=== PATIENT | male | born 1980 | race Caucasian/White ===

== ENCOUNTER 2020-08-11 16:33 | Emergency (ER) | payer SELFPAY ==
[2020-08-11 16:34] VITALS: BP 106/86; PULSE 91; RESP 15; TEMP 36.1; O2SAT 96; BMI 21.6
[2020-08-11] MEDS: Cephalexin 500 MG Capsule PO (19:24)
[2020-08-11 20:34] VITALS: RESP 18
--- NOTE | 2020-08-11 21:26 | ED.VISSUMM ---
- ER Visit Summary Date of Service: 08/11/20 Chief Complaint: Abscess History of Present Illness: The patient is a 40 M who presents with an abscess in his pubic area that has been getting worse over the past 4 days. Patient states he was able to express a mild amount of purulent drainage. Patient describes the pain as aching and throbbing. Patient states nothing makes it worse nothing makes it better. Patient denies any fevers or chills. Patient denies any nausea or vomiting. Physical Examination: Vital signs are stable. Patient is afebrile. Patient is in no acute distress. Skin is warm and dry. There is erythema and induration in the pubic area. There is minimal fluctuance. There is an open area that has been draining. There is no warmth or streaking noted. Abdomen is soft. Bowel sounds are normal. There is no tenderness. Cranial nerves II through XII are intact. There are no focal motor or sensory deficits noted. Emergency Department Course and Treatment: The area was cleaned with chlorhexidine prep. The area was anesthetized with 1% plain lidocaine locally. A small cruciate incision was made using an 11 blade scalpel. A small amount of purulent drainage was expressed. The wound was left open. Bacitracin dressing was applied. Patient tolerated the procedure well. Patient was instructed to use warm compresses. Patient was given a dose of Keflex here. Patient was given a prescription for Keflex. Patient was instructed to follow-up with her primary care physician in 5 to 7 days. Patient understood and was agreeable with the plan. All questions were answered. Disposition: Discharge home Impression: Abscess This note was generated with [employer] dictation software. It may contain incorrect words, spelling, and punctuation that were not noted in review of the chart prior to signing ED Disposition - Plan for ED Patient: Disposition: Home or Assisted Living Diagnosis: Abscess Instructions: ED Abscess Incision And Drainage Prescriptions: Cephalexin [Keflex] 500 mg PO Q6 #40 cap Prescription Printed Referrals: Rian Cameron MD [Primary Care Provider] - 5-7 Days
== END 2020-08-11 21:41 | disposition home or self-care (01) ==
PROVIDERS: Emergency Provider Emergency Medicine; PCP Internal Medicine
DX: L02.214 Cutaneous abscess of groin (principal); F17.200 Nicotine dependence, unspecified, uncomplicated
CPT/HCPCS: 10060; 90471; 99282

== ENCOUNTER 2020-10-26 19:00 | Inpatient (IN) | payer MEDICAID, SELFPAY ==
[2020-10-26 19:01] VITALS: BP 124/86; PULSE 104; RESP 20; TEMP 35.9; O2SAT 100; BMI 20.5
--- NOTE | 2020-10-26 19:09 | ED.DCSUM_ITS ---
History of Present Illness Chief Complaint: Substance Abuse Narrative: Patient is here for detox. He has no physical complaints he uses a half a gram of fentanyl every day. He has no current withdrawal symptoms. He denies chest pain shortness of breath fevers or chills. He has occasional methamphetamines, denies any alcohol use. Past Medical History - Allergies and Home Meds Allergies/Adverse Reactions: Allergies No Known Allergies Allergy (Verified 10/26/20 19:02) Primary Care Physician: Rian Cameron MD [Primary Care Provider] - Past Medical History: None Smoking Status: Current every day smoker Review of Systems All systems negative except as indicated General: Denies: Fever Eyes: Denies: Visual changes - bilaterally ENT: Denies: Rhinorrhea, Sore throat Cardiovascular: Denies: Chest pain Respiratory: Denies: Dyspnea, Cough Gastrointestinal: Denies: Abdominal pain, Nausea, Vomiting Genitourinary: Denies: Dysuria Musculoskeletal: Denies: Myalgias Skin: Denies: Rash Neurological: Denies: Headache, Weakness Psych: Reports: - - -10 mils Hematologic: Denies: Easy bruising, Easy bleeding Physical Exam Vital Signs/Narrative: Vital Signs Temp Pulse Resp BP Pulse Ox 10/26/20 19:01 96.7 F L 104 H 20 H 124/86 H 100 General: Well nourished Head: Normocephalic Eyes: EOMI ENT: Moist mucous membranes, No rhinorrhea Cardiovascular: Regular rate, Regular rhythm, No murmurs Respiratory: No distress, CTA bilaterally Abdomen: Soft, Nontender, Nondistended Back: Nontender, Normal Inspection. Negative for: CVA tenderness Extremities: Nontender, No edema Skin: Normal color Neurological: Normal Strength, Normal Sensation Psychological: Normal affect Diagnostic/Tx/Re-eval - Medical Decision Making Patient will be medically cleared and I will admit him to the detox center. ED Disposition - Plan for ED Patient: Disposition: Acute Care Hospital [facility] Instructions: ED Opioid Withdrawal Referrals: Rian Cameron MD [Primary Care Provider] -
[2020-10-26 19:49] LABS: Hematocrit 41.9 % (40-54); Mean Corpuscular Hgb 25.7 pg (27.0-32.0); Mean Corpuscular Volume 82.8 fL (80-94); Mean Platelet Vol. 9.6 fl (6.2-12.0); Platelet Count 260 K/mm3 (150-450); RBC Distribution Width CV 13.4 % (11.6-14.6); Red Blood Count 5.06 M/mm3 (4.6-6.2)
[2020-10-26 20:12] LABS: Amphetamine Urine VISTA POSITIVE (<1000 ng/mL); Barbiturate Urine VISTA NEGATIVE (< 200 ng/mL); Benzodiazepine Urine VISTA NEGATIVE (< 200 ng/mL); Cocaine Urine VISTA NEGATIVE (< 300 ng/mL); Ecstacy Urine VISTA POSITIVE (< 500 ng/mL); Methadone Urine VISTA NEGATIVE (< 300 ng/mL); PCP Urine VISTA NEGATIVE (< 25 ng/mL); THC Urine VISTA NEGATIVE (< 50 ng/mL); Vista UDS pH Range 6
[2020-10-26 20:19] LABS: AST(SGOT) 22 U/L (15-37); Alanine Aminotransfer ALT/SGPT 24 U/L (16-61); Albumin, Serum 3.8 g/dL (3.2-5.0); Alkaline Phosphatase 110 U/L (45-117); Anion Gap 4 (5-15); BUN 16 mg/dL (7-18); BUN/Creat Ratio 17.3 RATIO (10-20); Chloride 103 mmol/L (98-107); Creatinine, Serum 0.92 mg/dL (0.70-1.30); EST Glomerular Filtration Rate 96 mL/min (>60); Est Glom Filt Rate - Afr Amer 116 mL/min (>60); Estimated Creatinine Clearance 100.85 ml/min; Glucose 74 mg/dL (74-106); Potassium 3.5 mmol/L (3.5-5.1); Protein, Total 7.8 g/dL (6.4-8.2); Sodium Level 138 mmol/L (136-145)
--- NOTE | 2020-10-26 20:19 | CM.ED ---
Social Work Consult: Substance Abuse. Informant: Self Referral Met with patient in room. Introduced self and social welfare research worker role. Patient agreeable to speak with this social welfare research worker. Patient reports to be seeking help for opioid abuse. Patient reports to have last used yesterday. Patient verbally agreeing to [facility] contract for medical management of withdrawal symptoms. Patient denies any mental health history or suicidal thoughts, plans, intents. Patient reports to have abuse opioids for the past two years and I just need to make a change. Patient report plan from [facility] is to follow-up with [facility]. All questions answered. Telephone call to Bishnu Miranda. Updated on patient admission to [facility]. Chay Scott MSW, DANNY-S
--- NOTE | 2020-10-26 20:53 | PCM.HP.STD ---
Problem List (1) Chronic, continuous use of opioids Status: Chronic (2) Nicotine dependence Status: Acute Qualifiers: Nicotine product type: cigarettes Substance use status: uncomplicated Qualified Code(s): F17.210 - Nicotine dependence, cigarettes, uncomplicated History of Present Illness Date of Admission: 10/26/20 Chief Complaint: Request for medical stabilization The patient is a 40 year old M with past medical history of polysubstance use disorder, who uses fentanyl about half a gram daily for the past 2 years. Patient last use fentanyl 12 hours ago. He comes in requesting for medical stabilization. He admits to restless legs. Denied any fever or chills or nausea or vomiting. He plans on going [facility] after discharge for drug rehab. Vitals in the ED showed temperature of 96.7F, heart rate 104, blood pressure 124/86, respiratory rate is 20, SPO2 is 100% on room air. CBC D and CMP is unremarkable. Urine tox is positive for methamphetamine. Alcohol level is 5.0 Past Medical History Past Medical History (Chronic Problems): Chronic Problems Chronic, continuous use of opioids (Chronic) Allergies No Known Allergies Allergy (Verified 10/26/20 19:02) Home Medications: Ambulatory Orders Medication Instructions Recorded NK 10/26/20 Surgical History: - - Left knee surgery Psychiatric History: No pertinent psych hx Lives: Alone Smoking Status: Current some day smoker Tobacco Use: Cigarettes Alcohol: None Drugs: None - *Family History Maternal History Items: No pertinent history Paternal History Items: No pertinent history Review of Systems Constitutional: Denies: Anorexia, Chills, Fever, Malaise, Weakness, Weight Change, Fatigue Eyes: Denies: Blurred vision, Cataracts, Conjunctivae Inflammation, Pain, Redness, Vision Change HEENT: Denies: Difficulty Hearing, Difficulty Swallowing, Head Aches, Hearing Changes, Nasal Congestion, Sinus Congestion, Sinus Drainage Cardiovascular: Denies: Chest Pain, Claudication, Chest Tightness, Light Headedness, Orthopnea, Palpitations, Paroxysmal Noc. Dyspnea Respiratory: Denies: Cough, Pleuritic Pain, Shortness of breath at rest, Shortness of breath upon exertion, Sputum production, Wheezing Gastrointestinal: Denies: Abdominal Pain, Constipation, Hematemesis, Hematochezia, Nausea, Vomiting Genitourinary: Denies: Dysuria, Frequency, Incontinence, Nocturia Musculoskeletal: Denies: Joint Pain, Joint stiffness, Joint swelling, Joint Tenderness Skin: Denies: Dryness, Pruritis, Rash, Wounds Neurological: Reports: - - Restless leg. Denies: Difficulty swallowing, Focal weakness, Numbness, Tingling Psychiatric: Denies: Anxiety, Depression, Homicidal Ideations, Suicidal Ideations Hematologic/ Lymphatic: Denies: Easy Bruising, Easy Bleeding VTE Information - Inpt Only VTE Present on Admission: No VTE Pharm Prophylaxis ordered?: Yes - Physical Exam Vitals/I&O's: Vital Signs Temp Pulse Resp BP Pulse Ox 96.7 F L 104 H 20 H 124/86 H 100 10/26/20 19:01 10/26/20 19:01 10/26/20 19:10/26/20 19:10/26/20 19:01 Oxygen Delivery Method Room Air Weight: 66.8 kg Body Mass Index (BMI) 20.5 General: Alert, Oriented x3, Cooperative, No apparent distress HEENT: Atraumatic, PERRLA, EOMI, Normocephalic Oral: Moist Mucosa Neck: Supple Lungs: Clear to auscultation, Normal air movement Cardiovascular: Regular rate, Regular Rhythm, Normal S1, Normal S2, No murmurs Abdomen: Bowel Sounds Present, Soft, Non Tender, Non-Distended, No Hepato-splenomegaly Extremities: No edema Skin: No rashes Musculoskeletal: No Tenderness to Palpation of Joints or Extremities Lymphatic: No Cervical, Supraclavicular, or Inguinal Adenopathy Neurological: Cranial nerves II-XII grossly intact, Neuro grossly intact Psych/Mental Status: Normal Affect, Appropriate Laboratory Results 10/26/20 19:22: Urine Opiates Screen NEGATIVE, Urine Methadone Screen NEGATIVE, Ur Barbiturates Screen NEGATIVE, Ur Phencyclidine Scrn NEGATIVE, Ur Amphetamines Screen POSITIVE H, U Methamphetamin-MDMA POSITIVE H, U Benzodiazepines Scrn NEGATIVE, Urine Cocaine Screen NEGATIVE, U Cannabinoids Screen NEGATIVE, Ur Drug Screen Comment 10/26/20 19:40: WBC 6.0, RBC 5.06, Hgb 13.0, Hct 41.9, MCV 82.8, MCH 25.7 L, MCHC 31.0 L, RDW Std Deviation 40.0, RDW Coeff of Erica 13.4, Plt Count 260, MPV 9.6 10/26/20 19:40: Sodium 138, Potassium 3.5, Chloride 103, Carbon Dioxide 31.0, Anion Gap 4 L, BUN 16, Creatinine 0.92, Estim Creat Clear Calc 100.85, Est GFR (MDRD) Af Amer 116, Est GFR (MDRD) Non-Af 96, BUN/Creatinine Ratio 17.3, Glucose 74, Calcium 9.0, Total Bilirubin 0.40, AST 22, ALT 24, Alkaline Phosphatase 110, Total Protein 7.8, Albumin 3.8, Globulin 4.0, Albumin/Globulin Ratio 1.0 10/26/20 19:40: Ethyl Alcohol 5.0 Assessment/Plan All Active Problems Nicotine dependence (Acute) 1. Chronic opioid use disorder, patient uses fentanyl, request for medical nebulization for acute opioid withdrawal Patient has started to have restless legs; anticipate more withdrawal We will continue to monitor on the buprenorphine withdrawal protocol 2. Nicotine dependence, advised to quit, will continue on replacement 3. DVT prophylaxis -low risk, early ambulation recommended Inpatient E&M: 09663 Init Hosp L2
[2020-10-26 21:29] VITALS: BP 117/95; PULSE 95; RESP 16; TEMP 36.6; O2SAT 99
[2020-10-26 23:15] VITALS: BMI 19.5
[2020-10-26 23:24] VITALS: BMI 19.5
[2020-10-26 23:30] VITALS: BP 109/72; PULSE 84; RESP 18; TEMP 36.4; O2SAT 100
[2020-10-27 03:09] VITALS: BP 117/93; PULSE 92; RESP 18; TEMP 37; O2SAT 99
[2020-10-27] MEDS: cloNIDine HCl 0.1 MG Tablet PO (03:19)
[2020-10-27] MEDS: Ibuprofen 600 MG Tablet PO (03:19)
[2020-10-27] MEDS: Buprenorphine HCl 2 MG TAB.SUBL SL ×3 (03:19→18:49)
[2020-10-27 05:55] VITALS: BP 105/68; PULSE 80; RESP 18; TEMP 36.8; O2SAT 96
--- NOTE | 2020-10-27 09:33 | ADDICTION ---
This functional tester typewriters met with patient in his room to conduct ASAM, MSE, DUDIT assessments and to plan for discharge. PT presented with agitated mood and stated that he wants to leave to use but also noted that he plans to engage with [facility] immediately upon d/c from [facility]. He also reported that he and his girlfriend may move to [place] post [facility] d/c. This functional tester typewriters encouraged client to engage in recovery programming, such as [facility] prior to moving to [place] as he will likely need to gain coping skills and relapse prevention skills prior to making significant life changes. All assessments completed, faxed to and placed in chart on floor.
[2020-10-27 11:15] VITALS: BP 105/94; PULSE 82; RESP 16; TEMP 36.9; O2SAT 96
[2020-10-27] MEDS: hydrOXYzine PAM 25 MG Capsule 50 MG PO (11:15)
[2020-10-27] MEDS: Methocarbamol 750 MG Tablet 1500 MG PO ×2 (11:15→22:20)
[2020-10-27 14:50] VITALS: BP 122/83; PULSE 85; RESP 16; TEMP 36.4; O2SAT 99
--- NOTE | 2020-10-27 16:29 | PN_ITS ---
Patient Problems: Active and Suspected Problems Nicotine dependence (Acute) Subjective: Patient was seen and examined today, he does not complain of any nervousness, tremor, or uneasiness. - Physical Exam Vitals/I&O's: Vital Signs Temp Pulse Resp BP Pulse Ox 97.5 F L 85 16 122/83 H 99 10/27/20 14:50 10/27/20 14:50 10/27/20 14:50 10/27/20 14:50 10/27/20 14:50 Oxygen Delivery Method Room Air Weight: 63.2 kg Body Mass Index (BMI) 19.5 Intake and Output for Last 24 Hours 10/25/20 10/26/20 10/27/20 23:59 23:59 23:59 Intake Total 800 / 800 Balance 800 / 800 General: Alert, Oriented x3, Cooperative, No apparent distress, Well developed, Well nourished HEENT: Atraumatic, PERRLA, EOMI, Normocephalic Oral: Moist Mucosa Neck: Supple, No JVD, Negative Carotid Bruits, Trachea Midline, Thyroid Normal Size and Texture Lungs: Clear to auscultation, Normal air movement, No rhonchi, No wheeze, No rales Cardiovascular: Regular rate, Regular Rhythm, Normal S1, Normal S2, No murmurs, PMI Normal, No rub noted, No Gallop Abdomen: Bowel Sounds Present, Soft, Non Tender, Non-Distended Extremities: No clubbing, No cyanosis, No edema, Capillary Refill Less than 3 Seconds Skin: No rashes, No breakdown Musculoskeletal: No Tenderness to Palpation of Joints or Extremities Neurological: Cranial nerves II-XII grossly intact, Neuro grossly intact, Sensory exam intact to light touch and pain, Coordination normal Psych/Mental Status: Normal Affect, Appropriate, Alert and oriented to time, place, person, mood and affect Laboratory Results 10/26/20 19:22: Urine Opiates Screen NEGATIVE, Urine Methadone Screen NEGATIVE, Ur Barbiturates Screen NEGATIVE, Ur Phencyclidine Scrn NEGATIVE, Ur Amphetamines Screen POSITIVE H, U Methamphetamin-MDMA POSITIVE H, U Benzodiazepines Scrn NEGATIVE, Urine Cocaine Screen NEGATIVE, U Cannabinoids Screen NEGATIVE, Ur Drug Screen Comment 10/26/20 19:40: WBC 6.0, RBC 5.06, Hgb 13.0, Hct 41.9, MCV 82.8, MCH 25.7 L, MCHC 31.0 L, RDW Std Deviation 40.0, RDW Coeff of Erica 13.4, Plt Count 260, MPV 9.6 10/26/20 19:40: Sodium 138, Potassium 3.5, Chloride 103, Carbon Dioxide 31.0, Anion Gap 4 L, BUN 16, Creatinine 0.92, Estim Creat Clear Calc 100.85, Est GFR (MDRD) Af Amer 116, Est GFR (MDRD) Non-Af 96, BUN/Creatinine Ratio 17.3, Glucose 74, Calcium 9.0, Total Bilirubin 0.40, AST 22, ALT 24, Alkaline Phosphatase 110, Total Protein 7.8, Albumin 3.8, Globulin 4.0, Albumin/Globulin Ratio 1.0 10/26/20 19:40: Ethyl Alcohol 5.0 Current Medications Acetaminophen (Acetaminophen 500 Mg Tablet) 500 mg PO Q4H PRN PRN PRN Reason: Temp > 100.4 F Al Hydroxide/Mg Hydroxide (Mag Hydrox/Al Hydrox/Simeth 30 Ml Udc) 30 ml PO Q6H PRN PRN PRN Reason: dyspesia Buprenorphine HCl (Buprenorphine Hcl 2 Mg Tab.Subl) 4 mg SL Q8H FREDI; Taper Stop: 10/30/20 03:29 Last Admin: 10/27/20 11:15 Dose: 4 mg Documented by: Clonidine (Clonidine Hcl 0.1 Mg Tablet) 0.1 mg PO Q8H PRN PRN PRN Reason: RESTLESSNESS Last Admin: 10/27/20 03:19 Dose: 0.1 mg Documented by: Dicyclomine HCl (Dicyclomine 10 Mg Capsule) 20 mg PO Q6H PRN PRN PRN Reason: Abdominal Discomfort Gabapentin (Gabapentin 300 Mg Capsule) 300 mg PO Q8H PRN PRN PRN Reason: moderate to severe anxiety Hydroxyzine Pamoate (Hydroxyzine Imani 25 Mg Capsule) 50 mg PO Q6H PRN PRN PRN Reason: mild anxiety Last Admin: 10/27/20 11:15 Dose: 50 mg Documented by: Ibuprofen (Ibuprofen 600 Mg Tablet) 600 mg PO Q8H PRN PRN PRN Reason: Pain Score 1-10 Last Admin: 10/27/20 03:19 Dose: 600 mg Documented by: Loperamide HCl (Loperamide 2 Mg Capsule) 2 mg PO Q4H PRN PRN PRN Reason: LOOSE STOOLS Methocarbamol (Methocarbamol 750 Mg Tablet) 1,500 mg PO Q6H PRN PRN PRN Reason: MUSCLE SPASM Last Admin: 10/27/20 11:15 Dose: 1,500 mg Documented by: Nicotine (Nicotine 21 Mg Patch) 21 mg TD DAILY FREDI Last Admin: 10/27/20 11:10 Dose: Not Given Documented by: Nicotine Polacrilex (Nicotine Polacrilex 4 Mg Gum) 4 mg PO Q2H PRN PRN PRN Reason: Nicotine Craving Ondansetron HCl (Ondansetron 8 Mg Tablet) 8 mg PO Q8H PRN PRN PRN Reason: NAUSEA Senna (Senna Tablet) 2 tablet PO QHS PRN PRN Reason: Constipation Trazodone HCl (Trazodone 100 Mg Tablet) 100 mg PO QHS PRN PRN PRN Reason: INSOMNIA Medical Necessity - Tobacco Use Smoking Status: Current some day smoker Tobacco Use: Cigarettes Assessment/Plan All Active Problems Nicotine dependence (Acute) #1 opiate withdrawal-patient will remain on his current medications, 180 talked with the patient today, during the conversation he appeared to have an agitated mood but he expressed desire to follow-up with inpatient rehab services after h is discharge from the hospital. #2 polysubstance abuse Inpatient E&M: [id number] [facility] Hosp L2
[2020-10-27 18:57] VITALS: BP 116/65; PULSE 90; RESP 16; TEMP 36.4; O2SAT 99
[2020-10-27 22:13] VITALS: BP 126/69; PULSE 86; RESP 18; TEMP 36.5; O2SAT 99
[2020-10-27] MEDS: Acetaminophen 500 MG Tablet PO (22:20)
--- NOTE | 2020-10-27 23:57 | PCS.PANDOC ---
PANDEMIC DOCUMENTATION INITIATED: Date: 2329 Time: 10/26/20
[2020-10-28 03:47] VITALS: BP 120/60; PULSE 89; RESP 18; TEMP 36.7; O2SAT 98
[2020-10-28] MEDS: Ibuprofen 600 MG Tablet PO (03:53)
[2020-10-28] MEDS: Buprenorphine HCl 2 MG TAB.SUBL SL ×3 (03:53→19:19)
[2020-10-28] MEDS: hydrOXYzine PAM 25 MG Capsule 50 MG PO (03:53)
[2020-10-28 09:50] VITALS: BP 116/76; PULSE 79; RESP 18; TEMP 36.2; O2SAT 98
[2020-10-28 16:00] VITALS: BP 118/81; PULSE 74; RESP 18; TEMP 36.6; O2SAT 98
--- NOTE | 2020-10-28 17:14 | PCM.PROGNOTE ---
Patient Problems: Active and Suspected Problems Nicotine dependence (Acute) Subjective: He was seen and examined today, he does not complain of any nervousness or anxiety, he does not complain of any tremor. Objective: General: Alert, Oriented x3, Cooperative, No apparent distress, Well developed, Well nourished HEENT: Atraumatic, PERRLA, EOMI, Normocephalic Oral: Moist Mucosa Neck: Supple, No JVD, Negative Carotid Bruits, Trachea Midline, Thyroid Normal Size and Texture Lungs: Clear to auscultation, Normal air movement, No rhonchi, No wheeze, No rales Cardiovascular: Regular rate, Regular Rhythm, Normal S1, Normal S2, No murmurs, PMI Normal, No rub noted, No Gallop Abdomen: Bowel Sounds Present, Soft, Non Tender, Non-Distended Extremities: No clubbing, No cyanosis, No edema, Capillary Refill Less than 3 Seconds Skin: No rashes, No breakdown Musculoskeletal: No Tenderness to Palpation of Joints or Extremities Neurological: Cranial nerves II-XII grossly intact, Neuro grossly intact, Sensory exam intact to light touch and pain, Coordination normal Psych/Mental Status: Normal Affect, Appropriate, Alert and oriented to time, place, person, mood and affect - Physical Exam Vitals/I&O's: Vital Signs Temp Pulse Resp BP Pulse Ox 97.2 F L 79 18 116/76 98 10/28/20 09:50 10/28/20 09:50 10/28/20 09:50 10/28/20 09:50 10/28/20 09:50 Oxygen Delivery Method Room Air Weight: 63.2 kg Body Mass Index (BMI) 19.5 Intake and Output for Last 24 Hours 10/26/20 10/27/20 10/28/20 23:59 23:59 23:59 Intake Total 1650 / 1650 1500 / 1500 Balance 1650 / 1650 1500 / 1500 Current Medications Acetaminophen (Acetaminophen 500 Mg Tablet) 500 mg PO Q4H PRN PRN PRN Reason: Temp > 100.4 F Last Admin: 10/27/20 22:20 Dose: 500 mg Documented by: Al Hydroxide/Mg Hydroxide (Mag Hydrox/Al Hydrox/Simeth 30 Ml Udc) 30 ml PO Q6H PRN PRN PRN Reason: dyspesia Buprenorphine HCl (Buprenorphine Hcl 2 Mg Tab.Subl) 2 mg SL Q8H FREDI; Taper Stop: 10/30/20 03:29 Last Admin: 10/28/20 11:10 Dose: 2 mg Documented by: Clonidine (Clonidine Hcl 0.1 Mg Tablet) 0.1 mg PO Q8H PRN PRN PRN Reason: RESTLESSNESS Last Admin: 10/27/20 03:19 Dose: 0.1 mg Documented by: Dicyclomine HCl (Dicyclomine 10 Mg Capsule) 20 mg PO Q6H PRN PRN PRN Reason: Abdominal Discomfort Gabapentin (Gabapentin 300 Mg Capsule) 300 mg PO Q8H PRN PRN PRN Reason: moderate to severe anxiety Hydroxyzine Pamoate (Hydroxyzine Imani 25 Mg Capsule) 50 mg PO Q6H PRN PRN PRN Reason: mild anxiety Last Admin: 10/28/20 03:53 Dose: 50 mg Documented by: Ibuprofen (Ibuprofen 600 Mg Tablet) 600 mg PO Q8H PRN PRN PRN Reason: Pain Score 1-10 Last Admin: 10/28/20 03:53 Dose: 600 mg Documented by: Loperamide HCl (Loperamide 2 Mg Capsule) 2 mg PO Q4H PRN PRN PRN Reason: LOOSE STOOLS Methocarbamol (Methocarbamol 750 Mg Tablet) 1,500 mg PO Q6H PRN PRN PRN Reason: MUSCLE SPASM Last Admin: 10/27/20 22:20 Dose: 1,500 mg Documented by: Nicotine (Nicotine 21 Mg Patch) 21 mg TD DAILY FREDI Last Admin: 10/28/20 11:10 Dose: Not Given Documented by: Nicotine Polacrilex (Nicotine Polacrilex 4 Mg Gum) 4 mg PO Q2H PRN PRN PRN Reason: Nicotine Craving Ondansetron HCl (Ondansetron 8 Mg Tablet) 8 mg PO Q8H PRN PRN PRN Reason: NAUSEA Senna (Senna Tablet) 2 tablet PO QHS PRN PRN Reason: Constipation Trazodone HCl (Trazodone 100 Mg Tablet) 100 mg PO QHS PRN PRN PRN Reason: INSOMNIA Medical Necessity - Tobacco Use Smoking Status: Current some day smoker Tobacco Use: Cigarettes Assessment/Plan All Active Problems Nicotine dependence (Acute) #1 opiate withdrawal-patient will remain on his current medications, patient states he is planning on following up with 180 for some residential treatment following discharge from the hospital. #2 polysubstance abuse Inpatient E&M: [id number] Subs Hosp L2
[2020-10-28 20:19] VITALS: BP 116/82; PULSE 78; RESP 16; TEMP 36.8; O2SAT 99
[2020-10-29 02:58] VITALS: BP 122/85; PULSE 82; RESP 16; TEMP 36.8; O2SAT 100
[2020-10-29] MEDS: Buprenorphine HCl 2 MG TAB.SUBL SL ×2 (03:01→15:30)
[2020-10-29] MEDS: Methocarbamol 750 MG Tablet 1500 MG PO (03:01)
[2020-10-29 08:30] VITALS: BP 133/85; PULSE 78; RESP 14; TEMP 36.7; O2SAT 96
[2020-10-29] MEDS: Ibuprofen 600 MG Tablet PO (11:23)
[2020-10-29] MEDS: hydrOXYzine PAM 25 MG Capsule 50 MG PO (11:23)
[2020-10-29 15:29] VITALS: BP 95/60; PULSE 83; RESP 16; TEMP 36.9; O2SAT 98
--- NOTE | 2020-10-29 16:10 | PN_ITS ---
Patient Problems: Active and Suspected Problems Nicotine dependence (Acute) Subjective: Patient was seen and examined today, he does not appear anxious or tremorous, he voices no complaints to this examiner. Objective: General: Alert, Oriented x3, Cooperative, No apparent distress, Well developed, Well nourished HEENT: Atraumatic, PERRLA, EOMI, Normocephalic Oral: Moist Mucosa Neck: Supple, No JVD, Negative Carotid Bruits, Trachea Midline, Thyroid Normal Size and Texture Lungs: Clear to auscultation, Normal air movement, No rhonchi, No wheeze, No rales Cardiovascular: Regular rate, Regular Rhythm, Normal S1, Normal S2, No murmurs, PMI Normal, No rub noted, No Gallop Abdomen: Bowel Sounds Present, Soft, Non Tender, Non-Distended Extremities: No clubbing, No cyanosis, No edema, Capillary Refill Less than 3 Seconds Skin: No rashes, No breakdown Musculoskeletal: No Tenderness to Palpation of Joints or Extremities Neurological: Cranial nerves II-XII grossly intact, Neuro grossly intact, Sensory exam intact to light touch and pain, Coordination normal Psych/Mental Status: Normal Affect, Appropriate, Alert and oriented to time, place, person, mood and affect - Physical Exam Vitals/I&O's: Vital Signs Temp Pulse Resp BP Pulse Ox 98.4 F 83 16 95/60 98 10/29/20 15:29 10/29/20 15:29 10/29/20 15:29 10/29/20 15:29 10/29/20 15:29 Oxygen Delivery Method Room Air Weight: 63.2 kg Body Mass Index (BMI) 19.5 Intake and Output for Last 24 Hours 10/27/20 10/28/20 10/29/20 23:59 23:59 23:59 Intake Total 1650 / 1650 2350 / 2350 400 / 400 Balance 1650 / 1650 2350 / 2350 400 / 400 Current Medications Acetaminophen (Acetaminophen 500 Mg Tablet) 500 mg PO Q4H PRN PRN PRN Reason: Temp > 100.4 F Last Admin: 10/27/20 22:20 Dose: 500 mg Documented by: Al Hydroxide/Mg Hydroxide (Mag Hydrox/Al Hydrox/Simeth 30 Ml Udc) 30 ml PO Q6H PRN PRN PRN Reason: dyspesia Buprenorphine HCl (Buprenorphine Hcl 2 Mg Tab.Subl) 2 mg SL Q12H FREDI; Taper Stop: 10/30/20 03:29 Last Admin: 10/29/20 15:30 Dose: 2 mg Documented by: Clonidine (Clonidine Hcl 0.1 Mg Tablet) 0.1 mg PO Q8H PRN PRN PRN Reason: RESTLESSNESS Last Admin: 10/27/20 03:19 Dose: 0.1 mg Documented by: Dicyclomine HCl (Dicyclomine 10 Mg Capsule) 20 mg PO Q6H PRN PRN PRN Reason: Abdominal Discomfort Gabapentin (Gabapentin 300 Mg Capsule) 300 mg PO Q8H PRN PRN PRN Reason: moderate to severe anxiety Hydroxyzine Pamoate (Hydroxyzine Imani 25 Mg Capsule) 50 mg PO Q6H PRN PRN PRN Reason: mild anxiety Last Admin: 10/29/20 11:23 Dose: 50 mg Documented by: Ibuprofen (Ibuprofen 600 Mg Tablet) 600 mg PO Q8H PRN PRN PRN Reason: Pain Score 1-10 Last Admin: 10/29/20 11:23 Dose: 600 mg Documented by: Loperamide HCl (Loperamide 2 Mg Capsule) 2 mg PO Q4H PRN PRN PRN Reason: LOOSE STOOLS Methocarbamol (Methocarbamol 750 Mg Tablet) 1,500 mg PO Q6H PRN PRN PRN Reason: MUSCLE SPASM Last Admin: 10/29/20 03:01 Dose: 1,500 mg Documented by: Nicotine (Nicotine 21 Mg Patch) 21 mg TD DAILY [facility] Last Admin: 10/29/20 08:23 Dose: Not Given Documented by: Nicotine Polacrilex (Nicotine Polacrilex 4 Mg Gum) 4 mg PO Q2H PRN PRN PRN Reason: Nicotine Craving Ondansetron HCl (Ondansetron 8 Mg Tablet) 8 mg PO Q8H PRN PRN PRN Reason: NAUSEA Senna (Senna Tablet) 2 tablet PO QHS PRN PRN Reason: Constipation Trazodone HCl (Trazodone 100 Mg Tablet) 100 mg PO QHS PRN PRN PRN Reason: INSOMNIA Medical Necessity - Tobacco Use Smoking Status: Current some day smoker Tobacco Use: Cigarettes Assessment/Plan All Active Problems Nicotine dependence (Acute) #1 opiate withdrawal-patient will remain on his current medications, patient states he is planning on following up with 180 for some residential treatment following discharge from the hospital. Discharge date will be 10/30/2020 #2 polysubstance abuse Inpatient E&M: 92156 Subs Hosp L2
[2020-10-29 21:35] VITALS: BP 124/83; PULSE 67; RESP 16; TEMP 36.4; O2SAT 99
[2020-10-30 03:50] VITALS: BP 118/86; PULSE 73; RESP 18; TEMP 36.6; O2SAT 99
--- NOTE | 2020-10-30 06:37 | NURSING ---
patient approached nursing station fully clothed and stated he was signing himself out against medical advice. He stated that he felt better and wanted to go home. Patient signed the AMA form and the left the floor via the elevator. [facility] [place]
== END 2020-10-30 06:39 | disposition left against medical advice (07) | DRG 770 ==
LOC: ED 20:35 → MS3 21:44
PROVIDERS: Admitting Provider Internal Medicine; Emergency Provider Emergency Medicine; PCP Internal Medicine; Visit Provider Internal Medicine
DX: F11.23 Opioid dependence with withdrawal (principal); F17.210 Nicotine dependence, cigarettes, uncomplicated; Z53.21 Procedure and treatment not carried out due to patient leaving prior to being seen by health care provider
CPT/HCPCS: 36415; 80053; 80307; 82077; 85027; 99283; 99406